=== PATIENT | male | born 1995 | race Caucasian/White ===

== ENCOUNTER 2018-11-26 11:15 | Emergency (ER) | payer OTHER, MEDICAID ==
[2018-11-26 11:30] VITALS: BP 121/76
--- NOTE | 2018-11-26 11:49 | UC ---
Skin Complaint HPI - HPI Summary HPI Summary: pt developed a painful red area in the left groin area on his leg. he noticed it last night. pain and tenderness per pt. - History of Current Complaint Chief Complaint: UCSkin Time Seen by Provider: 11/26/18 11:33 Stated Complaint: PAIN AND SWELLING ON LEG NEAR GROIN Hx Obtained From: Patient Pain Intensity: 2 Pain Scale Used: 0-10 Numeric Aggravating Factor(s): Touch Alleviating Factor(s): Nothing - Allergy/Home Medications Allergies/Adverse Reactions: Allergies Allergy/AdvReac Type Severity Reaction Status Date / Time No Known Allergies Allergy Verified 08/09/14 17:41 Home Medications: Home Medications Lisdexamfetamine (NF) [Vyvanse (NF)] 11/26/18 [History] PMH/Surg Hx/FS Hx/Imm Hx - Surgical History Surgical History: None - Social History Alcohol Use: None Substance Use Type: None Smoking Status (MU): Heavy Every Day Tobacco Smoker Type: Cigarettes Amount Used/How Often: 1/2 PPD Physical Exam Vital Signs: Initial Vital Signs Temp 98.4 F 11/26/18 11:25 Pulse 93 11/26/18 11:25 Resp 16 11/26/18 11:25 BP 121/76 11/26/18 11:25 Pulse Ox 100 11/26/18 11:25 Course/Dx - Course Course Of Treatment: Acute Vitals good. Discharge ED - Discharge Plan Referrals: No Primary Care Phys,NOPCP [Primary Care Provider] -
--- NOTE | 2018-11-26 11:54 | UC ---
Skin Complaint HPI - HPI Summary HPI Summary: patient noticed a painful red area upper L thigh last pm after shower. cannot recall an injury or bug bite, but does live with animals and does go outside a lot - History of Current Complaint Chief Complaint: [facility] Time Seen by Provider: 11/26/18 11:33 Stated Complaint: PAIN AND SWELLING ON LEG NEAR GROIN Hx Obtained From: Patient, Family/Bridge Repair [employer] Person Onset/Duration: Sudden Onset Onset Severity: Mild Current Severity: Mild Pain Intensity: 2 Aggravating Factor(s): Touch Alleviating Factor(s): Nothing Associated Signs & Symptoms: Positive: Negative. 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 Lives: With Family Alcohol Use: None Substance Use Type: None Smoking Status (MU): Heavy Every Day Tobacco Smoker Type: Cigarettes Amount Used/How Often: 1/2 PPD Cessation Counseling: Patient Advised to Stop Review of Systems All Other Systems Reviewed And Are Negative: Yes Constitutional: Positive: Negative Skin: Positive: Other - redness L thigh Respiratory: Positive: Negative Cardiovascular: Positive: Negative Musculoskeletal: Positive: Negative Neurological: Positive: Negative Psychological: Positive: Negative Is Patient Immunocompromised?: No Physical Exam Triage Information Reviewed: Yes Appearance: Well-Appearing, No Pain Distress, Well-Nourished Vital Signs: Initial Vital Signs Temp 98.4 F 11/26/18 11:25 Pulse 93 11/26/18 11:25 Resp 16 11/26/18 11:25 BP 121/76 11/26/18 11:25 Pulse Ox 100 11/26/18 11:25 Vital Signs Reviewed: Yes Respiratory Exam: Normal Cardiovascular Exam: Normal Musculoskeletal Exam: Normal Musculoskeletal: Positive: Strength Intact, ROM Intact, No Edema Neurological Exam: Normal Psychological Exam: Normal Skin: Positive: Other - upper L anterior thigh: 4cm circular mildly erythemic non-swollen area. no certain skin wound or PW, however there are 2-3 small folliculitis lesions pubic area. 2-3 tender shotty lymphnodes L inguinal area Course/Dx - Differential Diagnoses - Skin Complaint Differential Diagnoses: Abscess, Cellulitis, Local Allergic Reaction, Lymphadenitis, Tick Born Illness - Diagnoses Provider Diagnosis: Cellulitis Discharge ED - Sign-Out/Discharge Documenting (check all that apply): Patient Departure All imaging exams completed and their final reports reviewed: No Studies - Discharge Plan Condition: Good Disposition: HOME Prescriptions: DOXYcycline CAP(*) [DOXYcycline 100MG CAP(*)] 100 mg PO BID #28 cap Patient Education Materials: Cellulitis (ED) Forms: *Work Release Referrals: No Primary Care Phys,NOPCP [Primary Care Provider] - Additional Instructions: keep area clean and dry start doxycycline antibiotic and take as prescribed monitor area for changes and report to ER if you develop fever, swollen joints or new symptoms - Billing Disposition and Condition Condition: GOOD Disposition: Home
== END 2018-11-26 12:02 | disposition home or self-care (01) ==
LOC: UCEAST 11:15
DX: L03.116 Cellulitis of left lower limb (principal); F90.9 Attention-deficit hyperactivity disorder, unspecified type; F17.210 Nicotine dependence, cigarettes, uncomplicated
CPT/HCPCS: 99202; G0463